=== PATIENT | male | born 1985 | race Two or more races ===

== ENCOUNTER → 2018-07-19 | Outpatient (CLI) | payer OTHER ==
--- NOTE | 2018-07-19 16:51 | Diagnostic Imaging Report ---
Exam: Sacroiliac joints, 3 views History: Right-sided low back pain, sciatica Comparison: None. Findings: No acute fractures or osseous destructive lesions. Sacroiliac joints are well-maintained. Sacral foramina are intact. Impression: No acute osseous abnormality. Signed by: Dr. Vicente Mendoza M.D. on 07/19/2018 4:47 PM
== END ==
LOC: RAD 15:49
PROVIDERS: ATTEND Internal Medicine
DX: M54.41 Lumbago with sciatica, right side (principal)
CPT/HCPCS: 72202